=== PATIENT | female | born 1990 | race American Indian/Alaskan Native ===

== ENCOUNTER 2016-10-09 08:30 | Emergency (ER) | payer MEDICAID ==
[2016-10-09 08:40] VITALS: BP 107/70
--- NOTE | 2016-10-09 10:57 | XRay Report ---
RIGHT SHOULDER RADIOGRAPHS INDICATION: Right shoulder pain, injury. COMPARISON: None similar. FINDINGS: Frontal and Y views of the right shoulder, 3 projections demonstrate normal humeral head contour, well positioned against the glenoid. Normal acromioclavicular joint. Preserved scapular contour. Normal visualized soft tissues, right ribs and lung. CONCLUSION: No acute right shoulder radiographic abnormality, as described. Thank you for the opportunity to participate in this patient's care.
--- NOTE | 2016-10-09 11:00 | XRay Report ---
THORACIC SPINE RADIOGRAPHS INDICATION: Injury, thoracic spine pain. COMPARISON: None similar at this institution. FINDINGS: AP and lateral views to evaluate thoracic spine demonstrate preserved vertebral body stature. Slight scoliosis versus positional. Normal disc heights. Symmetric pedicles. Intact costovertebral articulations. No abnormal paraspinal density. Normal imaged heart. Clear visualized lungs. CONCLUSION: No acute thoracic spine radiographic abnormality, as described. Thank you for the opportunity to participate in this patient's care.
--- NOTE | 2016-10-09 11:05 | XRay Report ---
RIGHT SCAPULA RADIOGRAPHS INDICATION: Injury, right scapular pain. COMPARISON: None similar. FINDINGS: Frontal and Y views demonstrate grossly intact right scapula as also included shoulder joints. Normal imaged right lung and ribs. CONCLUSION: No acute right scapula radiographic abnormality. Thank you for the opportunity to participate in this patient's care.
--- NOTE | 2016-10-09 11:40 | Emergency Department Report ---
Entered by PAM JIN, acting as scribe for DEONDRE MATIAS PA. Upper Extremity - HPI Chief Complaint: Back Pain/Injury Stated Complaint: BACK/SHOULDER PAIN Time Seen by Provider: 10/09/16 09:19 Upper Extremity: Right Shoulder Occurred When: 2 Days Mechanism: Other (lifting a coffe pot) Severity: severe Symptoms: Yes Pain with Movement (right shoulder), Yes Limited Range of Movement (right shoulder), No Deformity, No Numbness, No Weakness, No Swelling, No Bruising/Ecchymosis, No Laceration or Abrasion Other History: 25 y/o female with no significant PMHx presents to the ED c/o gradually worsening right shoulder pain that began 2 days ago. Patient states she injured her shoulder while lifting a coffee pot at work yesterday. Rates pain a 10/10 in severity, which she describes as aching in quality. Aggravated with movemant and alleviated with immobilization. Associated symptom include right sided upper back pain. Denies numbness and tingling, but she notes she had numbness and tingling in her right hand last. Denies chest trauma, fever, and chills. Denies taking any medication to relieve pain. NKDA. ED Review of Systems ROS: Stated complaint: BACK/SHOULDER PAIN Other details as noted in HPI Comment: All other systems reviewed and negative Constitutional: denies: chills, fever Eyes: denies: eye pain, eye discharge, vision change ENT: denies: ear pain, throat pain Respiratory: denies: cough, shortness of breath, wheezing Cardiovascular: denies: chest pain, palpitations Endocrine: no symptoms reported Gastrointestinal: denies: abdominal pain, nausea, vomiting, diarrhea Musculoskeletal: back pain (right sided upper back pain), arthralgia (right shoulder pain). denies: joint swelling, myalgia Skin: denies: rash, lesions Neurological: denies: headache, weakness, numbness, paresthesias ED Past Medical Hx - Past Medical History Previous Medical History?: No - Surgical History Past Surgical History?: No - Family History Family history: no significant - Social History Smoking Status: Current Every Day Smoker Substance Use Type: None - Medications Home Medications: Home Medications Medication Instructions Recorded Confirmed Last Taken Type Ibuprofen [Motrin] 600 mg PO Q8H PRN #15 tablet 10/09/16 Unknown Rx Upper Extremity Exam - Exam General: Vital signs noted. General: This is a well nourished, well developed, 25 year old female in no acute distress and nontoxic in appearance MSK: No crepitus or effusion present. No CCE. Head and Torso: Yes Back Tenderness (right thoracic paraspinal tenderness), No HEENT Abnormality, No Neck Tenderness (Supple, no C-spine tenderness, no tracheal deviation. Nontender to palpation. no adenopathy), No Chest/Lungs Abnormality (No chest wall tenderness. Lungs clear to auscultation bilaterally. No wheezes, rhonchi, or rales.), No Abdominal Tenderness (Soft, nontender to palpation in all quadrants, normal bowel sounds in all quadrants.) Shoulder Exam: Yes Shoulder Tenderness (right), Yes AC Joint Tenderness (right) , No Clavicle Tenderness, No Normal Range of Motion in Shoulder (limited due to right shoulder pain), No Shoulder Deformity Arm Exam: No Arm/Humerus Tenderness, No Arm Deformity Elbow: Yes Normal Range of Motion in Elbow, No Elbow Tenderness, No Elbow Deformity Forearm: No Forearm Tenderness, No Forearm Deformity, No Pain with Pronation, No Pain with Supination Wrist: Yes Normal ROM in Wrist, No Wrist Tenderness, No Wrist Deformity, No Snuffbox Tenderness, No Pain with Axial Thumb Compression Hand: Yes Normal ROM in Digit(s), No Hand Tenderness, No Hand Deformity, No Digit Tenderness, No Digit(s) Deformity, No Tendon Dysfunction CMS Exam: Yes Normal Distal Pulses (+2 pulses. No neurovascular compromise), Yes Normal Capillary Refill, Yes Normal Distal Sensation, No Broken Skin ED Course Vital Signs 10/09/16 08:37 Temperature 98.4 F Pulse Rate 73 Respiratory 16 Rate Blood Pressure 107/70 O2 Sat by Pulse 98 Oximetry - Reevaluation(s) Reevaluation #1: 10/09/16 11:33 Patient hair report that she has right shoulder injury from lifting coffee last night. X-ray of right shoulder, right scalp and right thoracic spine reveal no acute abnormalities. Patient stable throughout ED course ED Medical Decision Making - Radiology Data Radiology results: report reviewed X-ray of right shoulder, right scapula and thoracic spine reveal no acute bony abnormality. Right shoulder x-ray without any joint effusion or soft tissue swelling. - Medical Decision Making ED course: He reports that she injured her right shoulder and she is having pain in her right shoulder, right scapula and mid thoracic spine area that is limited in her movement. He states she was having some tingling in her right hand. X-ray of T-spine, right shoulder joint and scapula revealed no acute bony abnormality. This was relayed to patient and I told her if she continues to have pain she'll need to follow up with orthopedic doctor for MRI and evaluation of rotator cuff. She voiced understanding and discharged home Diagnostic/labs: X-ray of T-spine, right shoulder and scapula revealed no acute bony abnormalities Assessment/plan 1. Arthralgia right shoulder 2. Right shoulder injury 3. Back pain, thoracic region Patient discharged home with prescription for Motrin and to follow-up with orthopedic doctor. Critical care attestation.: If time is entered above; I have spent that time in minutes in the direct care of this critically ill patient, excluding procedure time. ED Disposition Clinical Impression: Arthralgia of right shoulder region, Upper back pain on right side Disposition: DC- TO HOME OR SELFCARE Is pt being admited?: No Does the pt Need Aspirin: No Condition: Stable Instructions: Arthralgia (ED), Back Pain (ED) Additional Instructions: follow-up with orthopedic doctor as instructed rest Affected area for 48 hours Prescriptions: Ibuprofen [Motrin] 600 mg PO Q8H PRN #15 tablet PRN Reason: Pain Referrals: REZA BLANCO MD [Staff Physician] - 2-3 Days Forms: Work/School Release Form(ED) This documentation as recorded by the ANNABEL edmond JASMINE,accurately reflects the service I personally performed and the decisions made by ,DEONDRE MATIAS PA.
== END 2016-10-09 11:48 | disposition home or self-care (01) ==
LOC: ED 08:30
DX: M25.511 Pain in right shoulder (principal); M54.6 Pain in thoracic spine; F17.200 Nicotine dependence, unspecified, uncomplicated
CPT/HCPCS: 72070; 99283

== ENCOUNTER 2017-09-25 19:49 | Emergency (ER) | payer MEDICAID ==
[2017-09-25 20:13] VITALS: BP 102/51
[2017-09-25] MEDS ORDERED: NACL 0.9% 1000 ML 1,000 ML IV ONE (20:13)
[2017-09-25 20:25] LABS: Bilirubin,Urine NEG (Negative); Blood,Urine NEG (Negative); Color,Urine Yellow (Yellow); Mucus,Urine 1+ /HPF; Protein,Urine <15 mg/dL mg/dL (Negative); Urobilinogen,Urine < 2.0 mg/dL (<2.0)
[2017-09-25 20:35] LABS: Basophils % (Auto) 0.6 % (0.0-1.8); Eosinophils % (Auto) 0.5 % (0.0-4.3); Hematocrit 37.6 % (30.3-42.9); Hemoglobin 12.8 gm/dl (10.1-14.3); Lymphocytes # (Auto) 3.1 K/mm3 (1.2-5.4); Lymphocytes % (Auto) 45.5 % (13.4-35.0); Mean Corpuscular HGB Conc 34 % (30-34); Mean Corpuscular Hemoglobin 32 pg (28-32); Mean Corpuscular Volume 95 fl (79-97); Monocytes # (Auto) 0.5 K/mm3 (0.0-0.8); Monocytes % (Auto) 7.7 % (0.0-7.3); Platelet Count 202 K/mm3 (140-440); Red Blood Count 3.98 M/mm3 (3.65-5.03); Red Cell Distribution Width 12.9 % (13.2-15.2)
[2017-09-25 20:48] LABS: Alanine Aminotransferase 26 units/L (7-56); Albumin 4.3 g/dL (3.9-5); BUN/Creatinine Ratio 13; Blood Urea Nitrogen 12 mg/dL (7-17); Calcium 9.1 mg/dL (8.4-10.2); Hemolysis Index 4; Lipase 12 units/L (13-60)
[2017-09-25] MEDS ORDERED: TYLENOL PO ONE (23:42)
[2017-09-25] MEDS ORDERED: ZOFRAN ODT PO ONE (23:42)
--- NOTE | 2017-09-25 23:47 | Emergency Department Report ---
ED Female HPI - General Chief complaint: Abdominal Pain Stated complaint: ABDOMINAL PAIN Time Seen by Provider: 09/25/17 23:42 Source: patient Mode of arrival: Ambulatory Limitations: No Limitations - History of Present Illness Initial comments: Patient is 26 years old female 4 para 2 with one miscarriage. Patient presented to the ER complaining of lower abdominal pain for the last 2 weeks associated with some nausea but no vomiting. Patient stated that her last menstrual period was in July. She denied any vaginal bleeding or discharge. MD Complaint: pelvic pain Location: suprapubic - Related Data Previous Rx's Medication Instructions Recorded Last Taken Type Ibuprofen [Motrin] 600 mg PO Q8H PRN #15 tablet 10/09/16 Unknown Rx Allergies Allergy/AdvReac Type Severity Reaction Status Date / Time No Known Allergies Allergy Verified 10/09/16 08:41 ED Review of Systems ROS: Stated complaint: ABDOMINAL PAIN Other details as noted in HPI Comment: All other systems reviewed and negative Constitutional: denies: chills, fever Respiratory: denies: cough Cardiovascular: denies: chest pain, palpitations, dyspnea on exertion, orthopnea Gastrointestinal: abdominal pain, nausea. denies: vomiting, diarrhea, constipation, hematemesis, melena, hematochezia Neurological: denies: headache, weakness, numbness, paresthesias, confusion, abnormal gait ED Past Medical Hx - Past Medical History Previous Medical History?: No - Surgical History Past Surgical History?: No - Social History Smoking Status: Never Smoker Substance Use Type: None - Medications Home Medications: Home Medications Medication Instructions Recorded Confirmed Last Taken Type Ibuprofen [Motrin] 600 mg PO Q8H PRN #15 tablet 10/09/16 Unknown Rx ED Physical Exam - General Limitations: No Limitations General appearance: alert, in no apparent distress - Head Head exam: Present: atraumatic, normocephalic, normal inspection - Eye Eye exam: Present: normal appearance - ENT ENT exam: Present: normal exam, normal orophraynx, mucous membranes moist - Neck Neck exam: Present: normal inspection, full ROM. Absent: tenderness, meningismus, lymphadenopathy, thyromegaly - Respiratory Respiratory exam: Present: normal lung sounds bilaterally. Absent: respiratory distress, wheezes, rales, rhonchi, accessory muscle use, decreased breath sounds , prolonged expiratory - Cardiovascular Cardiovascular Exam: Present: regular rate, normal rhythm, normal heart sounds - GI/Abdominal GI/Abdominal exam: Present: soft, normal bowel sounds. Absent: distended, tenderness, guarding, rebound, rigid, organomegaly, mass, bruit, pulsatile mass , hernia - Extremities Exam Extremities exam: Present: normal inspection, full ROM, normal capillary refill - Back Exam Back exam: Present: normal inspection, full ROM. Absent: tenderness, CVA tenderness (R), CVA tenderness (L), muscle spasm, paraspinal tenderness, vertebral tenderness - Neurological Exam Neurological exam: Present: alert, oriented X3, CN II-XII intact, normal gait, reflexes normal - Skin Skin exam: Present: warm, intact, normal color ED Course Vital Signs 09/25/17 20:09 Temperature 98.4 F Pulse Rate 99 H Respiratory 16 Rate Blood Pressure 102/51 O2 Sat by Pulse 99 Oximetry - Reevaluation(s) Reevaluation #1: 09/26/17 05:18 Patient is sitting comfortably easily arousable. Patient stated that she is feeling better. I informed about the ultrasound and advised to follow-up with her OB in the next 2-3 days. ED Medical Decision Making - Lab Data Result diagrams: 09/25/17 20:23 09/25/17 20:23 Critical care attestation.: If time is entered above; I have spent that time in minutes in the direct care of this critically ill patient, excluding procedure time. ED Disposition Clinical Impression: Abdominal pain affecting Disposition: DC-01 TO HOME OR SELFCARE Is pt being admited?: No Condition: Stable Instructions: Abdominal Pain in (ED) Referrals: PRIMARY CARE, [Primary Care Provider] - 3-5 Days
--- NOTE | 2017-09-26 07:33 | Ultrasound Report ---
FINAL REPORT PROCEDURE: TRANSVAGINAL US OBSTETRIC TECHNIQUE: Real-time transabdominal sonography of the uterus, placenta, amniotic fluid, adnexa, and fetus was performed with image documentation. Measurements were obtained to determine age/size. M-mode Doppler was used to document heartbeat. CPT 55901 HISTORY: abdomen pain COMPARISON: No prior studies are available for comparison. FINDINGS: CRL: 13.2 mm, which corresponds to a gestational age of: 7 weeks, 4 days. Yolk Sac: Normal. Embryonic Cardiac Activity: 141 beats per minute Gestational Sac: Normal. Amniotic fluid: Normal. Cervix: Normal. Right Ovary: There is an 18 millimeter cyst Left Ovary: Normal. Estimated delivery date: 05/11/2018 Uterus and adnexa: Normal. IMPRESSION: Single live intrauterine gestation at approximately 7 weeks and 4 days. EDC by US 05/11/2018
--- NOTE | 2017-09-26 07:35 | Ultrasound Report ---
FINAL REPORT PROCEDURE: TRANSVAGINAL US OBSTETRIC TECHNIQUE: Real-time transabdominal sonography of the uterus, placenta, amniotic fluid, adnexa, and fetus was performed with image documentation. Measurements were obtained to determine age/size. M-mode Doppler was used to document heartbeat. CPT 20496 HISTORY: abdomen pain COMPARISON: No prior studies are available for comparison. FINDINGS: CRL: 13.2 mm, which corresponds to a gestational age of: 7 weeks, 4 days. Yolk Sac: Normal. Embryonic Cardiac Activity: 141 beats per minute Gestational Sac: Normal. Amniotic fluid: Normal. Cervix: Normal. Right Ovary: There is an 18 millimeter cyst Left Ovary: Normal. Estimated delivery date: 05/11/2018 Uterus and adnexa: Normal. IMPRESSION: Single live intrauterine gestation at approximately 7 weeks and 4 days. EDC by US 05/11/2018
== END 2017-09-26 05:57 | disposition home or self-care (01) ==
LOC: ED 19:49
DX: O26.891 Other specified pregnancy related conditions, first trimester (principal); R10.2 Pelvic and perineal pain; Z3A.01 Less than 8 weeks gestation of pregnancy
CPT/HCPCS: 36415; 76801; 76817; 80053; 81001; 83690; 84702; 84703; 85025; 99284; J7030; Q0162

== ENCOUNTER 2018-04-12 22:38 | Observation (INO) | payer MEDICAID ==
[2018-04-12] MEDS ORDERED: LACTATED RINGERS 1,000 ML IV ONE (23:18)
[2018-04-13 00:31] LABS: Bilirubin,Urine NEG (Negative); Blood,Urine NEG (Negative); Color,Urine Straw (Yellow); Protein,Urine <15 mg/dL mg/dL (Negative); Urobilinogen,Urine < 2.0 mg/dL (<2.0); WBC,Urine < 1.0 /HPF (0.0-6.0)
[2018-04-13] MEDS ORDERED: BRETHINE SUB-Q ONE ×3 (01:33→05:59)
[2018-04-13] MEDS ORDERED: CELESTONE SOLUSPAN IM ONE (01:42)
[2018-04-13] MEDS ORDERED: COLACE PO PRN (01:45)
[2018-04-13] MEDS ORDERED: TYLENOL PO PRN (01:45)
[2018-04-13] MEDS ORDERED: LACTATED RINGERS 1,000 ML IV SCH (02:00)
--- NOTE | 2018-04-13 02:05 | History and Physical Report ---
History of Present Illness Date of examination: 04/13/18 Date of admission: 04/13/2018 Chief complaint: Contractions since 8:00 PM last night. History of present illness: 27 year old presents to L&D triage complaining of contractions. I was notified of patient's arrival at 01:21 am today. Patient states she has been having contractions since about 8:00 pm last night. Patient denies leaking of fluid or vaginal bleeding. Patient reports active movement. Patient has been receiving care at [facility] and records are available. LMP 08/07/17. EDC 05/14/18. significant for the following: cigarette smoker, use of marijuana, depression (treated with Prozac during ), LSIL pap. labs are as follows: AB positive, antibody screen negative, LSIL pap, rubella immune, RPR nonreactive, hepatitis B surface antigen negative, HIV negative, hemoglobin electrophoresis AA, gonorrhea negative, chlamydia negative, quad screen negative, GBS negative. 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 denies: chlamydia, gonorrhea, hepatitis B, HIV, syphilis, trichomonas Family/Genetic History: none Social history: lives with family, smoking, full code, other (marijuana use during ). denies: alcohol abuse, prescription drug abuse, IV drug use - Obstetrical History Expected Date of Delivery: 05/14/18 Actual Gestation: 35 Week(s) 4 Day(s) : 4 Para: 2 Hx # Term Pregnancies: 1 Number of Pregnancies: 2 Spontaneous Abortions: 1 Induced : 0 Number of Living Children: 2 Medications and Allergies Allergies Allergy/AdvReac Type Severity Reaction Status Date / Time No Known Allergies Allergy Verified 10/09/16 08:41 Home Medications Medication Instructions Recorded Confirmed Last Taken Type Vit,Calc76/Iron/Folic 1 tab PO DAILY 04/12/18 04/12/18 04/12/18 History [Pnv 29-1 Tablet] Active Meds: Active Medications Acetaminophen (Tylenol) 650 mg PO Q4H PRN PRN Reason: Pain MILD(1-3)/Fever >100.5/BAR Betamethasone Acet/Betameth SodPhos (Celestone Soluspan) 12 mg IM ONCE ONE Stop: 04/14/18 01:41 Lactated Ringer's (Lactated Ringers) 1,000 mls @ 125 mls/hr IV DIRECT FRANCOIS Multivitamins/Iron/Calcium ( Vitamin) 1 each PO QDAY FRANCOIS Review of Systems All systems: negative (contractions) - Vital Signs Vital signs: Vital Signs Pulse Pulse Ox 86 99 04/12/18 22:56 04/12/18 22:56 Temp Pulse Resp BP Pulse Ox 98.9 F 92 H 18 101/60 98 04/12/18 23:09 04/13/18 01:53 04/12/18 23:09 04/13/18 00:32 04/13/18 01:53 - Physical Exam Abdomen: Positive: normal appearance, soft. Negative: distention, tenderness, guarding, rigidity Genitourinary (Female): Positive: normal external genitalia, normal perenium. Negative: perineal/vulvar lesions Vagina: Positive: normal moisture Uterus: Positive: enlarged. Negative: tender Anus/Rectum: Positive: normal perianal skin Extremities: Positive: normal. Negative: tenderness, edema - Obstetrical FHR: category 1 Uterine Contraction Monitor Mode: External Cervical Dilatation: 3.5 Cervical Effacement Percentage: 60 station: -2 Uterine Contraction Pattern: Irregular Uterine Contraction Intensity: Mild Results All other labs normal. Assessment and Plan A: at 35 weeks, 4 days gestation. contractions, resolving with IV hydration and SQ Brethine. GBS negative. P: Admit for 23 hour observation. Continuous EFM. IM Celestone every 24 hours times 2 doses. US for presentation. UA/UDS.
[2018-04-13 02:14] LABS: Amphetamine Screen,Urine PRESUMPTIVE NEGATIVE; Benzodiazepines Screen,Urine PRESUMPTIVE NEGATIVE; Cocaine Screen,Urine PRESUMPTIVE NEGATIVE; Methadone Screen,Urine PRESUMPTIVE NEGATIVE; Opiate Screen,Urine PRESUMPTIVE NEGATIVE
[2018-04-13 02:28] LABS: Cannabinoid Screen,Urine PRESUMPTIVE POSITIVE
[2018-04-13 02:29] LABS: Basophils % (Auto) 0.4 % (0.0-1.8); Eosinophils # (Auto) 0.1 K/mm3 (0.0-0.4); Eosinophils % (Auto) 0.7 % (0.0-4.3); Hematocrit 27.9 % (30.3-42.9); Hemoglobin 9.5 gm/dl (10.1-14.3); Mean Corpuscular HGB Conc 34 % (30-34); Mean Corpuscular Volume 95 fl (79-97); Monocytes # (Auto) 0.8 K/mm3 (0.0-0.8); Monocytes % (Auto) 9.9 % (0.0-7.3); Platelet Count 151 K/mm3 (140-440); Red Blood Count 2.94 M/mm3 (3.65-5.03); Red Cell Distribution Width 12.9 % (13.2-15.2)
--- NOTE | 2018-04-13 03:55 | Ultrasound Report ---
FINAL REPORT PROCEDURE: US OB LIMITED TECHNIQUE: Real-time limited sonographic examination was performed for evaluation of size, pos ition, heartbeat, fluid volume for each fetus with image documentation (1 or more fetuses). CPT 7681 5 HISTORY: presentation and FRANKIE COMPARISON: No prior studies are available for comparison. FINDINGS: Fetus is in a cephalic presentation. Amniotic fluid index is 14.2 centimeters. Placenta is anterior without evidence of previa. heart rate is 159 beats per minute. IMPRESSION: Fetus is in a cephalic presentation. Amniotic fluid index is 14.2 centimeters. Placenta is anterior without evidence of previa. heart rate is 159 beats per minute.
[2018-04-13] MEDS ORDERED: PRENATAL VITAMIN PO SCH (10:00)
[2018-04-14 01:04] VITALS: BP 90/52
[2018-04-14] MEDS ORDERED: CELESTONE SOLUSPAN IM ONE (01:40)
--- NOTE | 2018-04-14 08:21 | Event Note ---
Date: 04/14/18 Spoke with RN regarding patient this morning. RN states patient received her second Celestone injection early this morning but did not have a ride home so wanted to stay until 5 or 6 am when she would be able to have a ride home. Came to discharge patient; patient refused to be put back on EFM for NST; patient refused to have cervix rechecked. Advised patient that cervix recheck was advised by MD. Patient refused and signed out AMA. Rx Procardia 10 mg called to [facility] for patient and patient instructed re: use. Advised pt. to follow up at [facility] this week.
== END 2018-04-14 06:45 | disposition left against medical advice (07) ==
LOC: TRG 22:38 → LD 04-13 03:02
PROVIDERS: ADMIT Obstetrics & Gynecology; ATTEND Obstetrics & Gynecology
DX: O62.9 Abnormality of forces of labor, unspecified (principal); O99.333 Smoking (tobacco) complicating pregnancy, third trimester; F17.210 Nicotine dependence, cigarettes, uncomplicated; O99.343 Other mental disorders complicating pregnancy, third trimester; F32.9 Major depressive disorder, single episode, unspecified; O99.323 Drug use complicating pregnancy, third trimester; F12.10 Cannabis abuse, uncomplicated; Z3A.35 35 weeks gestation of pregnancy
CPT/HCPCS: 36415; 76815; 80307; 81001; 85025; 86592; 86850; 86900; 86901; 96372; G0378; J0702; J3105; J7120

== ENCOUNTER 2018-05-13 11:30 | Inpatient (IN) | payer MEDICAID ==
[2018-05-13] MEDS ORDERED: CYTOTEC ONE (17:09)
[2018-05-13] MEDS ORDERED: XYLOCAINE 2% INFILTRATI ONE (17:42)
[2018-05-13] MEDS ORDERED: MINERAL OIL PO PRN (17:42)
[2018-05-13] MEDS ORDERED: CYTOTEC PR ONE (17:45)
--- NOTE | 2018-05-13 17:49 | History and Physical Report ---
History of Present Illness Date of examination: 05/13/18 Date of admission: 05/13/18 Chief complaint: Contractions History of present illness: 27yo G 4 P 1 1 1 2 @ 39 weeks 6 days here with c/o contractions that started this morning. She reports +FMs but denies VB or LOF. She is a [employer] [facility] [employer] patient who initiated care at 14 weeks gestation. Her care was complicated by h/o delivery (co-managed w/APA), cigarette smoking, marijuana use, h/o depression (no suicidal or homicidal thoughts), anemia (on iron therapy), and abnormal pap (LGSIL/neg HPV.) Labs: AB pos, Antibody Screen neg, RI, VDRL NR, HBsAg neg, HIV neg, MSAFP neg, GC/CT neg, GBS neg. 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 denies: alcohol abuse, prescription drug abuse - Obstetrical History Expected Date of Delivery: 05/14/18 Actual Gestation: 39 Week(s) 6 Day(s) : 4 Para: 2 Hx # Term Pregnancies: 1 Number of Pregnancies: 1 Spontaneous Abortions: 1 Induced : 0 Number of Living Children: 2 #1 Infant Gender: Female year: 2,011 (12/21/2011) Birthweight: 3.147 kg (6lbs 15oz) Method of Delivery: Vaginal Gestational age at delivery: 42 Complications: none #2 Gender: Male year: 2,[birth year] (10/26/2012) Birthweight: 2.268 kg (5 lbs) Method of Delivery: Vaginal Gestational age at delivery: 36 Complications: none Medications and Allergies Allergies Allergy/AdvReac Type Severity Reaction Status Date / Time No Known Allergies Allergy Verified 10/09/16 08:41 Home Medications Medication Instructions Recorded Confirmed Last Taken Type Vit,Calc76/Iron/Folic 1 tab PO DAILY 04/12/18 04/12/18 04/12/18 History [Pnv 29-1 Tablet] Review of Systems All systems: negative - Vital Signs Vital signs: Vital Signs Pulse Ox 68 L 05/13/18 12:04 Temp Pulse Resp BP Pulse Ox 98.5 F 91 H 20 118/93 100 05/13/18 12:27 05/13/18 17:09 05/13/18 12:27 05/13/18 17:09 05/13/18 12:26 - Obstetrical FHR: auscultation normal, category 1 FHR comments: baseline 135, moderate variability, 15x15 accels, no decels Cervical Dilatation: 4 (per RN) Cervical Effacement Percentage: 90 (per RN) station: -2 (per RN) Uterine Contraction Pattern: Regular Results All other labs normal. Assessment and Plan - Patient Problems (1) 39 weeks gestation of Current Visit: Yes Status: Acute (2) Active labor at term Current Visit: Yes Status: Acute Plan to address problem: Admit to L&D with routine labor orders May ambulate prn Anticipate vaginal delivery
[2018-05-13] MEDS ORDERED: TUCKS PAD TP PRN (17:50)
[2018-05-13] MEDS ORDERED: MILK OF MAGNESIA PO PRN (17:50)
[2018-05-13] MEDS ORDERED: ZOFRAN IV PRN (17:50)
[2018-05-13] MEDS ORDERED: LANSINOH TP PRN (17:50)
[2018-05-13] MEDS ORDERED: BENADRYL PO PRN (17:50)
[2018-05-13] MEDS ORDERED: TYLENOL PO PRN (17:50)
[2018-05-13] MEDS ORDERED: PHENERGAN PO PRN (17:50)
[2018-05-13] MEDS ORDERED: PHENERGAN PR PRN (17:50)
[2018-05-13] MEDS ORDERED: DULCOLAX PR PRN (17:50)
[2018-05-13] MEDS ORDERED: PITOCin/NS 20 UNIT/1000ML DRIP 20 UNITS/1,000 ML BAG IV SCH (18:00)
[2018-05-13] MEDS ORDERED: LACTATED RINGERS 1,000 ML IV SCH (18:00)
[2018-05-13] MEDS ORDERED: SODIUM CHLORIDE FLUSH SYRINGE 10 ML IV NR (18:00)
--- NOTE | 2018-05-13 18:15 | Procedure Note ---
OB Delivery Note - Delivery Date of Delivery: 05/13/18 (17:24) Surgeon: JOSSIE LUNA (CNM) Estimated blood loss: 200cc - Vaginal Delivery presentation: vertex Delivery position: OP Intrapartum events: none Delivery induction: none Delivery monitor: external FHT, external uterine Route of delivery: (17:24) Delivery placenta: spontaneous (17:32) Delivery cord: 3 umbilical vessels Episiotomy: none Delivery laceration: none Anesthesia: none Delivery comments: of a vigorous term 6 lbs 13oz female on 05/13/18 @ 17:24. Baby bulb-suction ed, dried & placed [id number] on maternal abdomen. After 3 mins, umbilical cord double-clamped & cut. No IV access. Pitocin 10units IM administered by RN. Spontaneous delivery of placenta, Hua-side presenting at 17:32. Moderate lochia present. Fundal massage and IV Pitocin initiated. Cytotec 800mcg AK administered. Placenta intact, was discarded. Perineum intact. Mom and baby in stable condition. - Infant A at 1 minute: 8 at 5 minutes: 9 Infant Gender: Female (6lbs 13oz(3088gm); 19in)
[2018-05-13] MEDS: NORCO 5/325 PO PRN ×2 (18:27→23:36)
[2018-05-13] MEDS: IBUPROFEN PO SCH ×2 (18:28→23:36)
[2018-05-13 18:41] LABS: Hematocrit 37.4 % (30.3-42.9); Hemoglobin 12.6 gm/dl (10.1-14.3); Mean Corpuscular HGB Conc 34 % (30-34); Mean Corpuscular Volume 94 fl (79-97); Red Blood Count 3.98 M/mm3 (3.65-5.03); Red Cell Distribution Width 13.8 % (13.2-15.2)
[2018-05-13 18:42] LABS: Platelet Count 147 K/mm3 (140-440)
[2018-05-13] MEDS: FEOSOL PO SCH (23:36)
[2018-05-14 03:02] LABS: Amphetamine Screen,Urine PRESUMPTIVE NEGATIVE; Benzodiazepines Screen,Urine PRESUMPTIVE NEGATIVE; Cannabinoid Screen,Urine PRESUMPTIVE NEGATIVE; Cocaine Screen,Urine PRESUMPTIVE NEGATIVE; Methadone Screen,Urine PRESUMPTIVE NEGATIVE; Opiate Screen,Urine PRESUMPTIVE NEGATIVE
[2018-05-14] MEDS: IBUPROFEN PO SCH ×3 (05:09→18:00)
[2018-05-14] MEDS: NORCO 5/325 PO PRN ×3 (05:10→21:20)
[2018-05-14 05:27] LABS: Hematocrit 31.4 % (30.3-42.9); Hemoglobin 10.7 gm/dl (10.1-14.3)
--- NOTE | 2018-05-14 10:08 | Progress Note ---
Assessment and Plan A: 27 yo, , PPD1 s/p Intact perineum Anemia Depression AB+ blood type P: Continue routine PP orders Anticipate D/C home tomorrow Subjective - Subjective Date of service: 05/14/18 Principal diagnosis: Interval history: See Admission H & P; OB vaginal delivery note; and PP progress notes. Patient reports: appetite normal, voiding normally, pain poorly controlled (Reports a moderate amt of pain in abdominal area. Is taking medications as ordered.), ambulating normally : doing well, other (and with good latch), bottle feeding Objective - Vital Signs Latest vital signs: Vital Signs Temp Pulse Resp BP BP Pulse Ox 05/14/18 08:00 97.6 F 64 18 84/31 100 05/14/18 05:10 18 05/14/18 05:09 18 05/14/18 04:25 98.6 F 63 18 97/51 99 05/13/18 23:36 18 05/13/18 20:16 98.6 F 72 16 102/26 100 05/13/18 19:14 77 101/58 05/13/18 18:59 71 99/57 05/13/18 18:44 67 118/76 05/13/18 18:30 79 110/57 05/13/18 18:14 78 117/64 05/13/18 17:59 69 107/58 05/13/18 17:56 70 115/57 05/13/18 17:45 68 145/107 05/13/18 17:09 91 H 118/93 05/13/18 15:14 90 100/50 05/13/18 15:09 93 H 209/137 05/13/18 12:27 98.5 F 20 05/13/18 12:26 86 100 05/13/18 12:21 85 100 05/13/18 12:15 91 H 100 05/13/18 12:10 93 H 100 05/13/18 12:09 95 H 111/74 67 L 05/13/18 12:05 81 99 05/13/18 12:04 68 L Intake and Output 05/13/18 05/14/18 05/14/18 23:59 07:59 15:59 Intake Total 100 440 360 Output Total 300 Balance 100 140 360 Intake: Oral 100 440 360 Output: Urine 300 Void 300 Other: Total, Intake Amount 100 200 360 Total, Output Amount 300 # Voids Void 1 Estimated Blood Loss 200 - Exam Breasts: Present: normal Cardiovascular: Present: Regular rate, Normal S1, Normal S2 Lungs: Present: Clear to auscultation, Normal air movement Abdomen: Present: normal appearance, soft, normal bowel sounds Uterus: Present: fundal height below umbilicus (U-1) Extremities: Present: normal Deep Tendon Reflex Grade: Normal +2
--- NOTE | 2018-05-14 10:13 | Discharge Summary ---
Providers - Providers Date of Admission: 05/13/18 18:13 Date of discharge: 05/15/18 Attending physician: EILEEN CARTER Primary care physician: NADIR PIERRE MD Hospitalization Reason for admission: active labor Delivery: Episiotomy: none Laceration: none Other procedures: none complications: none Discharge diagnosis: other (; Anemia) [place] baby: female Hospital course: See Admission H & P; OB vaginal delivery note; and PP progress notes. Condition at discharge: Good Disposition: DC-01 TO HOME OR SELFCARE Plan - Provider Discharge Summary Activity: routine, no sex for 6 weeks, no heavy lifting 4 weeks, no strenuous exercise Diet: routine Instructions: routine Additional instructions: [] Smoking cessation referral if applicable(refer to patient education folder for contact #) [] Refer to [facility]'s [facility] Booklet Call your doctor immediately for: * Fever > 100.5 * Heavy vaginal bleeding ( >1 pad per hour) * Severe persistent headache * Shortness of breath * Reddened, hot, painful area to leg or breast * Drainage or odor from incision. Continue iron supplementation - Follow up plan Follow up: NADIR PIERRE MD [Primary Care Provider] - 6 Weeks
[2018-05-14] MEDS: FEOSOL PO SCH ×2 (10:26→21:20)
[2018-05-14] MEDS: PRENATAL VITAMIN PO SCH (10:26)
[2018-05-15] MEDS: IBUPROFEN PO SCH ×2 (00:01→06:02)
[2018-05-15] MEDS: NORCO 5/325 PO PRN (06:02)
[2018-05-15] MEDS: PRENATAL VITAMIN PO SCH (09:30)
[2018-05-15] MEDS: FEOSOL PO SCH (09:30)
[2018-05-15 12:50] VITALS: BP 110/80
== END 2018-05-15 12:20 | disposition home or self-care (01) | DRG 775 ==
LOC: TRG 11:30 → LD 11:33 → TRG 18:12 → LD 18:13 → OB 20:09
PROVIDERS: ADMIT Obstetrics & Gynecology; ATTEND Obstetrics & Gynecology
PROC: 10E0XZZ Delivery of Products of Conception, External Approach (ICD-10-PCS; principal; 2018-05-13)
DX: O99.324 Drug use complicating childbirth (principal); F32.9 Major depressive disorder, single episode, unspecified; F17.210 Nicotine dependence, cigarettes, uncomplicated; F12.90 Cannabis use, unspecified, uncomplicated; D64.9 Anemia, unspecified; O99.344 Other mental disorders complicating childbirth; O99.334 Smoking (tobacco) complicating childbirth; Z3A.39 39 weeks gestation of pregnancy; Z37.0 Single live birth
CPT/HCPCS: 36415; 80307; 85014; 85018; 85027; 86592; 86850; 86900; 86901; G0378; J2590

== ENCOUNTER 2018-09-01 14:36 | Emergency (ER) | payer MEDICAID ==
[2018-09-01] MEDS ORDERED: NACL 0.9% 1000 ML 1,000 ML IV ONE (15:01)
[2018-09-01] MEDS ORDERED: TYLENOL PO ONE (15:03)
--- NOTE | 2018-09-01 15:05 | Event Note ---
ED Screening Note Date of service: 09/01/18 Time: 15:02 ED Screening Note: 27 y/o female comes in for high fever, headache, nausea and dizziness. Patient was recently in residential and release on Sunday. This initial assessment/diagnostic orders/clinical plan/treatment(s) is/are subject to change based on patients health status, clinical progression and re- assessment by fellow clinical providers in the ED. Further treatment and workup at subsequent clinical providers discretion. Patient/guardian urged not to elope from the ED as their condition may be serious if not clinically assessed and managed. Initial orders include:
[2018-09-01 15:22] LABS: Basophils % (Auto) 0.3 % (0.0-1.8); Eosinophils % (Auto) 0.1 % (0.0-4.3); Hematocrit 41.7 % (30.3-42.9); Hemoglobin 14.4 gm/dl (10.1-14.3); Lymphocytes # (Auto) 1.3 K/mm3 (1.2-5.4); Lymphocytes % (Auto) 14.4 % (13.4-35.0); Mean Corpuscular HGB Conc 35 % (30-34); Mean Corpuscular Volume 91 fl (79-97); Monocytes # (Auto) 0.7 K/mm3 (0.0-0.8); Platelet Count 194 K/mm3 (140-440); Red Blood Count 4.59 M/mm3 (3.65-5.03)
[2018-09-01 15:33] LABS: INR 1.19 (0.87-1.13)
--- NOTE | 2018-09-01 15:47 | Emergency Department Report ---
ED Headache HPI - General Chief Complaint: Headache Stated Complaint: DIZZINESS/HEAD PAIN Time Seen by Provider: 09/01/18 14:59 Source: patient Exam Limitations: no limitations - History of Present Illness Initial Comments: 27-year-old female presents to ED with complaint of headache and neck pain. Patient states she was released from half-way last night. Patient reports she was arrested for probation violation 2 days ago. Patient says because she did not want to be incarcerated, she was banging her head on the door and carter very hard because she wanted to leave. Patient reports she was placed in restraints due to her behavior. Patient presents today due to headache and neck pain from hitting her head. Patient also found to have a fever. Denies nausea or vomiting, sore throat, cough, abdominal pain, urinary frequency. Timing/Duration: other (onset yesterday) Quality: severe Modifying Factors: improves with: exposure to light Associated Symptoms: stiff neck. denies: loss of consciousness, nausea/vomiting, nasal congestion, sinus infection Allergies/Adverse Reactions: Allergies No Known Allergies Allergy (Verified 10/09/16 08:41) Home Medications: Ambulatory Orders Vit,Calc76/Iron/Folic [Pnv 29-1 Tablet] 1 tab PO DAILY 04/12/18 Azithromycin [Zithromax Z-ELDA] 250 mg PO QDAY 5 Days #6 tablet 09/01/18 Naproxen [Naprosyn] 500 mg PO BID #20 tablet 09/01/18 methOCARBAMOL [Robaxin TAB] 500 mg PO Q8HR PRN #20 tablet 09/01/18 traMADol [Ultram] 50 mg PO Q6HR PRN #7 tablet 09/01/18 ED Review of Systems ROS: Stated complaint: DIZZINESS/HEAD PAIN Other details as noted in HPI Comment: All other systems reviewed and negative Constitutional: fever Respiratory: denies: cough Cardiovascular: denies: chest pain Gastrointestinal: denies: abdominal pain, nausea, vomiting, diarrhea Genitourinary: denies: dysuria, frequency, discharge Neurological: headache. denies: weakness, numbness ED Past Medical Hx - Past Medical History Previous Medical History?: No Hx Hypertension: No Hx Congestive Heart Failure: No Hx Diabetes: No Hx Deep Vein Thrombosis: No Hx Renal Disease: No Hx Sickle Cell Disease: No Hx Seizures: No Hx Asthma: No Hx COPD: No Hx HIV: No - Surgical History Past Surgical History?: No - Social History Smoking Status: Never Smoker Substance Use Type: None - Medications Home Medications: Home Medications Medication Instructions Recorded Confirmed Last Taken Type Vit,Calc76/Iron/Folic 1 tab PO DAILY 04/12/18 05/13/18 05/13/18 09:00 History [Pnv 29-1 Tablet] Azithromycin [Zithromax Z-ELDA] 250 mg PO QDAY 5 Days #6 tablet 09/01/18 Unknown Rx Naproxen [Naprosyn] 500 mg PO BID #20 tablet 09/01/18 Unknown Rx methOCARBAMOL [Robaxin TAB] 500 mg PO Q8HR PRN #20 tablet 09/01/18 Unknown Rx traMADol [Ultram] 50 mg PO Q6HR PRN #7 tablet 09/01/18 Unknown Rx ED Physical Exam - General Limitations: No Limitations General appearance: alert, in no apparent distress - Head Head exam: Present: atraumatic, normocephalic - Eye Eye exam: Present: normal appearance, PERRL, EOMI - ENT ENT exam: Present: mucous membranes moist - Neck Neck exam: Present: normal inspection. Absent: full ROM - Respiratory Respiratory exam: Present: normal lung sounds bilaterally. Absent: respiratory distress - Cardiovascular Cardiovascular Exam: Present: normal rhythm, tachycardia - GI/Abdominal GI/Abdominal exam: Present: soft. Absent: distended, tenderness - Extremities Exam Extremities exam: Present: normal inspection - Neurological Exam Neurological exam: Present: alert, oriented X3, CN II-XII intact. Absent: motor sensory deficit - Psychiatric Psychiatric exam: Present: normal affect, normal mood - Skin Skin exam: Present: warm, dry, intact, normal color ED Course Vital Signs 09/01/18 09/01/18 09/01/18 14:55 15:00 15:12 Temperature 103.2 F H 99.3 F Pulse Rate 128 H 129 H Respiratory 18 24 Rate Blood Pressure 120/72 Blood Pressure [Right] O2 Sat by Pulse 100 96 Oximetry 09/01/18 09/01/18 09/01/18 15:15 15:31 16:00 Temperature Pulse Rate 100 H 106 H Respiratory 18 19 19 Rate Blood Pressure 112/55 110/58 Blood Pressure [Right] O2 Sat by Pulse 100 100 100 Oximetry 09/01/18 09/01/18 09/01/18 19:18 19:30 19:34 Temperature Pulse Rate 79 77 78 Respiratory 15 15 Rate Blood Pressure 112/55 104/59 Blood Pressure 104/59 [Right] O2 Sat by Pulse 98 Oximetry 09/01/18 20:00 Temperature Pulse Rate 87 Respiratory 18 Rate Blood Pressure 94/52 Blood Pressure [Right] O2 Sat by Pulse Oximetry - Lumbar Puncture Consent Obtained: written consent Time Out Performed: Yes Indication for Procedure: headache, fever work up Patient Position: Sitting Upright/Leaning F Skin Prep: Povidone-Iodine 1% Local Anesthetic Used: Lidocaine 1% Amount of anesthesia used (mls): 3 Spinal Needle Gauge: 22G Interspace Used: L4-L5 Fluid Initially Obtained: clear Complications: none Patient Tolerated Procedure: well ED Medical Decision Making - Lab Data Result diagrams: 09/01/18 15:03 09/01/18 15:03 - Radiology Data Radiology results: report reviewed, image reviewed - Medical Decision Making - 27 yo F w/ BAR and neck pain after purposefully hitting her head against the wall all night long while in half-way because she did not want to be there - released from half-way last night - presents today w/ BAR and neck pain which pt reports is likely due to self- induced trauma - however, pt found to be febrile and tachycardic at triage - WBCs normal, lactate normal - vital signs improved; BP likely due to smaller body habitus - CXR shows possible pneumonia; pt denies cough, SOB, O2 sats normal - LP performed and appears negative for meningitis; CSF clear, 0-1 WBC in CSF cell count, CSF glucose normal - pt ambulating well, w/o assistance - will discharge at this time and will cover for possible pneumonia - outpt follow-up advised - Differential Diagnosis head injury, meningitis, uti, pneumonia Critical care attestation.: If time is entered above; I have spent that time in minutes in the direct care of this critically ill patient, excluding procedure time. ED Disposition Clinical Impression: Pneumonia, Head injury, Acute cervical myofascial strain Disposition: - TO HOME OR SELFCARE Is pt being admited?: No Condition: Stable Instructions: Muscle Strain (ED), Minor Head Injury (ED), Bacterial Pneumonia (ED) Prescriptions: Naproxen [Naprosyn] 500 mg PO BID #20 tablet methOCARBAMOL [Robaxin TAB] 500 mg PO Q8HR PRN #20 tablet PRN Reason: Muscle Spasm traMADol [Ultram] 50 mg PO Q6HR PRN #7 tablet PRN Reason: Pain Azithromycin [Zithromax Z-ELDA] 250 mg PO QDAY 5 Days #6 tablet Referrals: DEVIN WYLIE MD [Primary Care Provider] - 3-5 Days Forms: Work/School Release Form(ED)
[2018-09-01] MEDS ORDERED: NACL 0.9% 1000 ML IV ONE (15:55)
[2018-09-01 16:18] LABS: Alanine Aminotransferase 15 units/L (7-56); Albumin 4.4 g/dL (3.9-5); BUN/Creatinine Ratio 7; Blood Urea Nitrogen 7 mg/dL (7-17); Calcium 9.7 mg/dL (8.4-10.2); Hemolysis Index 6
--- NOTE | 2018-09-01 16:37 | XRay Report ---
CHEST 1 VIEW INDICATION / CLINICAL INFORMATION: fever. COMPARISON: None available. FINDINGS: SUPPORT DEVICES: None. HEART / MEDIASTINUM: No significant abnormality. LUNGS / PLEURA: Focal airspace consolidation and effusion identified along the left lower lung concer raz for pneumonia. The right lung is clear. Signer Name: Sourav Cisneros MD Signed: 09/01/2018 4:33 PM Workstation Name: [id number]
--- NOTE | 2018-09-01 17:11 | Cat Scan Report ---
CT BRAIN: 09/01/2018 INDICATION / CLINICAL INFORMATION: headache. COMPARISON: None available. FINDINGS: BRAIN/INTRACRANIAL STRUCTURES: Unenhanced CT images of the brain demonstrate no evidence of acute int racranial abnormality. Ventricles and sulci are normal in size and shape. There is no evidence of hemorrhage or mass. There are no abnormal extra-axial fluid collections. EXTRACRANIAL STRUCTURES: Unremarkable. IMPRESSION: Negative unenhanced CT of the brain. All CT scans at this location are performed using dose reduction to ALARA by means of automated expos ure control. Signer Name: Larry Kim MD Signed: 09/01/2018 5:06 PM Workstation Name: [id number]
--- NOTE | 2018-09-01 17:13 | Cat Scan Report ---
CT CERVICAL SPINE: 09/01/2018 INDICATION / CLINICAL INFORMATION: Trauma. COMPARISON: None available. FINDINGS: CT images of the cervical spine were obtained. Images are evaluated in the axial, coronal, and sagit dipti planes. There is no evidence of acute abnormality. Vertebral body alignment is normal. CRANIOCERVICAL JUNCTION: Unremarkable. PARASPINAL STRUCTURES: Unremarkable. IMPRESSION: No acute abnormality. Negative CT evaluation of the cervical spine. All CT scans at this location are performed using dose reduction to ALARA by means of automated expos ure control. Signer Name: Larry Kim MD Signed: 09/01/2018 5:09 PM Workstation Name: [id number]
[2018-09-01] MEDS ORDERED: ROCEPHIN/NS 2 GM/100 ML 2 GM/100 ML BAG IV ONE (18:00)
[2018-09-01] MEDS ORDERED: ROCEPHIN IM ONE (19:14)
[2018-09-01] MEDS ORDERED: NACL 0.9% 100 ML ONE (19:15)
[2018-09-01 19:42] LABS: Appearance,CSF Clear
[2018-09-01 19:43] LABS: Appearance,CSF Clear; Red Blood Cell,CSF 0 /mm3 (0-0); Red Blood Cell,CSF 1 /mm3 (0-0); White Blood Cell,CSF 0 /mm3 (1-10); White Blood Cell,CSF 1 /mm3 (1-10)
[2018-09-01 20:21] VITALS: BP 94/52
[2018-09-01 20:25] LABS: Basophils CSF 0 %
[2018-09-01 20:26] LABS: Basophils CSF 0 %; Total Cells Counted 0 /mm3
[2018-09-01 20:39] LABS: Bacteria,Urine 1+ /HPF (Negative); Bilirubin,Urine NEG (Negative); Blood,Urine NEG (Negative); Color,Urine Yellow (Yellow); Mucus,Urine FEW /HPF; Protein,Urine <15 mg/dL mg/dL (Negative); Urobilinogen,Urine < 2.0 mg/dL (<2.0)
== END 2018-09-01 20:42 | disposition home or self-care (01) ==
LOC: ED 14:36
DX: S16.1XXA Strain of muscle, fascia and tendon at neck level, initial encounter (principal); S09.90XA Unspecified injury of head, initial encounter; J18.9 Pneumonia, unspecified organism; R50.9 Fever, unspecified; W22.01XA Walked into wall, initial encounter; Y93.89 Activity, other specified; Y92.149 Unspecified place in prison as the place of occurrence of the external cause; Y99.8 Other external cause status
CPT/HCPCS: 36415; 62270; 70450; 71045; 72125; 80053; 81001; 82140; 82805; 82947; 84703; 85025; 85610; 87040; 87086; 87116; 89051; 93005; 93010; 96361; 96365; 99285; J0696; J7030

== ENCOUNTER 2020-12-17 10:29 | Emergency (ER) | payer MEDICAID ==
--- NOTE | 2020-12-17 13:03 | Emergency Department Report ---
ED General Adult HPI - General Chief complaint: Pain General Stated complaint: BUMP ON VAGINA,BACK PAIN, PUI?: Yes Time Seen by Provider: 12/17/20 12:52 Source: patient, RN notes reviewed, old records reviewed Mode of arrival: Stretcher Limitations: No Limitations - History of Present Illness Initial comments: The patient was evaluated in the emergency department for symptoms described in the history of present illness. He/she was evaluated in the context of the global COVID-19 pandemic, which necessitated consideration that the patient might be at risk for infection with the virus that causes COVID-19. Institutional protocols and algorithms that pertain to the evaluation of patients at risk for COVID-19 are in a state of rapid change based on information released by regulatory bodies including the CDC and federal and state organizations. These policies and algorithms were followed during the patient's care in the emergency department. Please note that these policies, procedures and recommendations changed on a rapid basis. During the entire history and physical examination, I am chaperoned by nurse Amira Sahni The patient is a 30-year-old female. She is not vaccinated against COVID-19. The patient presents to the ER today with a complaint of diffuse back pain which is nontraumatic, myalgias, arthralgias, headache, body aches, bump on her external vagina, malaise, weakness, fatigue, and diarrhea. Patient thinks she has loss of taste or smell. Patient denies extremity weakness and numbness. Patient occasionally consumes tobacco and/or marijuana. Patient reports a very distant history of STI. Patient reports being active with one male partner. Her symptoms are improved with fluids and hydromorphone in the emergency room. -: Gradual, hour(s), days(s) Location: head, back, genitals, left, right, lower extremity Quality: aching Consistency: constant Improves with: medication, rest Worsens with: movement - Related Data Home Medications Medication Instructions Recorded Confirmed Last Taken Vit,Calc76/Iron/Folic 1 tab PO DAILY 04/12/18 05/13/18 05/13/18 09:00 [Pnv 29-1 Tablet] Previous Rx's Medication Instructions Recorded Last Taken Type Acetaminophen [Non-Aspirin Extra 500 mg PO Q6HR PRN #30 tablet 12/17/20 Unknown Rx Strength] Ibuprofen [Motrin] 600 mg PO Q8H PRN #30 tablet 12/17/20 Unknown Rx Metoclopramide [Reglan] 10 mg PO QID PRN #30 tablet 12/17/20 Unknown Rx levoFLOXacin [Levaquin] 750 mg PO QDAY #10 tablet 12/17/20 Unknown Rx Allergies Allergy/AdvReac Type Severity Reaction Status Date / Time No Known Allergies Allergy Verified 10/09/16 08:41 ED Review of Systems ROS: Stated complaint: BUMP ON VAGINA,BACK PAIN, Other details as noted in HPI Constitutional: malaise, weakness Eyes: denies: eye discharge ENT: denies: epistaxis Respiratory: cough Cardiovascular: denies: chest pain Gastrointestinal: nausea, diarrhea. denies: abdominal pain, vomiting Genitourinary: as per HPI Musculoskeletal: back pain, arthralgia, myalgia Neurological: weakness Psychiatric: anxiety ED Past Medical Hx - Past Medical History Hx Hypertension: No Hx Congestive Heart Failure: No Hx Diabetes: No Hx Deep Vein Thrombosis: No Hx Renal Disease: No Hx Sickle Cell Disease: No Hx Seizures: No Hx Asthma: No Hx COPD: No Hx HIV: No - Social History Smoking Status: Never Smoker Substance Use Type: None - Medications Home Medications: Home Medications Medication Instructions Recorded Confirmed Last Taken Type Vit,Calc76/Iron/Folic 1 tab PO DAILY 04/12/18 05/13/18 05/13/18 09:00 History [Pnv 29-1 Tablet] Acetaminophen [Non-Aspirin Extra 500 mg PO Q6HR PRN #30 tablet 12/17/20 Unknown Rx Strength] Ibuprofen [Motrin] 600 mg PO Q8H PRN #30 tablet 12/17/20 Unknown Rx Metoclopramide [Reglan] 10 mg PO QID PRN #30 tablet 12/17/20 Unknown Rx levoFLOXacin [Levaquin] 750 mg PO QDAY #10 tablet 12/17/20 Unknown Rx ED Physical Exam - General Limitations: No Limitations General appearance: alert, anxious, in distress - Head Head exam: Present: atraumatic, normocephalic - Eye Eye exam: Present: normal appearance, PERRL, EOMI, other (Visual acuity intact to finger counting in color perception and pain close distance). Absent: nystagmus - ENT ENT exam: Present: normal exam, normal orophraynx, mucous membranes moist, normal external ear exam - Neck Neck exam: Present: normal inspection, full ROM. Absent: tenderness, meni ngismus - Respiratory Respiratory exam: Present: normal lung sounds bilaterally. Absent: respiratory distress, wheezes, rales, rhonchi, stridor, decreased breath sounds - Cardiovascular Cardiovascular Exam: Present: regular rate, normal rhythm, normal heart sounds. Absent: bradycardia, tachycardia, irregular rhythm, systolic murmur, diastolic murmur, rubs, gallop - GI/Abdominal GI/Abdominal exam: Present: soft. Absent: distended, tenderness, guarding, rebound, rigid, pulsatile mass - External exam: Present: normal external exam, lesions (There is an indurated external vaginal lesion noted, without pus or streaking at around 7:00, minimal pustule noted, questionable vesicle noted) - Extremities Exam Extremities exam: Present: normal inspection, full ROM, other (2+ pulses noted in the bilateral upper and lower extremities. There is no palpable cord. negative Homans sign. Muscular compartments are soft. The pelvis is stable.). Absent: pedal edema, calf tenderness - Back Exam Back exam: Present: normal inspection, tenderness, CVA tenderness (R), CVA tenderness (L), muscle spasm, paraspinal tenderness. Absent: vertebral tenderness - Neurological Exam Neurological exam: Present: alert, oriented X3, other (No facial droop. Tongue midline. Extraocular movements intact bilaterally. Facial sensation intact to light touch in V1, V2, V3 distribution bilaterally. 5 and a 5 strength in 4 extremities. Sensation intact to light touch in 4 extremities.). Absent: motor sensory deficit - Psychiatric Psychiatric exam: Present: anxious - Skin Skin exam: Present: warm, dry, intact, normal color. Absent: rash ED Course Vital Signs 12/17/20 12/17/20 12/17/20 12:54 12:58 15:35 Temperature 99.8 F H Pulse Rate 68 Respiratory 16 Rate Blood Pressure 92/57 [Left] O2 Sat by Pulse 96 100 Oximetry 12/17/20 17:27 Temperature Pulse Rate 63 Respiratory 16 Rate Blood Pressure 102/51 [Left] O2 Sat by Pulse 99 Oximetry - Reevaluation(s) Reevaluation #1: 12/17/20 16:08 Differential diagnosis, including but not limited to: Fibromyalgia, pneumonia, urinary tract infection, cellulitis, genital herpes, COVID-19 Assessment and plan: 30-year-old female, with low-grade temperature, very slender, borderline hypotension, with multiple symptoms, including headache, nausea, diarrhea, body aches, external vaginal irritation, generalized malaise and fatigue. Patient placed on cardiac monitoring isolation. Started IV fluids and hydromorphone. This much improved her symptomatology. On reassessment she is resting comfortably states that she feels significantly improved. Blood pressu re still somewhat low, additional IV fluids, and ketorolac ordered. Urinalysis pending at this time. Chest x-ray unremarkable. The patient is not hypoxic. Patient counseled to obtain outpatient COVID-19 testing, as well as outpatient COVID-19 vaccination status. Patient inquired as to muscle relaxants, and I informed her that it is this provider's practice to not administer muscle relaxants. We recommend Tylenol and/or ibuprofen. In terms of her external vaginal lesion, there is induration, with possible pustule versus vesicle. Warm compresses, pain medication, empiric antivirals, and oral antibiotics. Outpatient follow-up with primary care and/or CANNERY TENDER ENGINEER. Reassess after fluid resuscitation has completed, and reassess after urinalysis has completed. 12/17/20 17:57 Patient had a prolonged stay here in the emergency room, secondary to prolonged time to acquire urinalysis. Urinalysis reviewed and appreciated. In spite of 14 epithelial cells, given positive nitrites, bacteriuria, CVA tenderness, low- grade fever, we will treat empirically for pyelonephritis. Blood pressure im proved. No active vomiting. Patient feels improved. Ambulates with a steady gait. Ceftriaxone will be administered in the emergency room. Discharged with Levaquin, which should cover skin/soft tissue, and urinary pathogens. Discharged with pain medication, nausea medication, warm compresses. Outpatient follow-up. Patient should follow-up with a BUSINESS MAIL ENTRY CLERK or primary care doctor to rule in/rule out genital herpes. Given lack of convincing/definitive vesicular lesion, I would prefer to withhold antiviral therapy at this time. ED Medical Decision Making - Lab Data Result diagrams: 12/17/20 13:10 12/17/20 13:10 Vital Signs 12/17/20 12/17/20 12/17/20 12:54 12:58 15:35 Temperature 99.8 F H Pulse Rate 68 Respiratory 16 Rate Blood Pressure 92/57 [Left] O2 Sat by Pulse 96 100 Oximetry Lab Results 12/17/20 12/17/20 12/17/20 Range/Units 13:10 13:10 13:10 WBC 5.6 (4.5-11.0) K/mm3 RBC 4.26 (3.65-5.03) M/mm3 Hgb 13.4 (10.1-14.3) gm/dl Hct 40.2 (30.3-42.9) % MCV 94 (79-97) fl MCH 32 (28-32) pg MCHC 33 (30-34) % RDW 12.9 L (13.2-15.2) % Plt Count 256 (140-440) K/mm3 Lymph % (Auto) 29.1 (13.4-35.0) % [place] % (Auto) 14.1 H (0.0-7.3) % Eos % (Auto) 0.3 (0.0-4.3) % Baso % (Auto) 0.5 (0.0-1.8) % Lymph # (Auto) 1.6 (1.2-5.4) K/mm3 [place] # (Auto) 0.8 (0.0-0.8) K/mm3 Eos # (Auto) 0.0 (0.0-0.4) K/mm3 Baso # (Auto) 0.0 (0.0-0.1) K/mm3 Seg Neutrophils % 56.0 (40.0-70.0) % Seg Neutrophils # 3.2 (1.8-7.7) K/mm3 PT (12.2-14.9) Sec. INR (0.87-1.13) Sodium 137 (137-145) mmol/L Potassium 4.3 (3.6-5.0) mmol/L Chloride 100.6 (98-107) mmol/L Carbon Dioxide 23 (22-30) mmol/L Anion Gap 18 mmol/L BUN 10 (7-17) mg/dL Creatinine 0.8 (0.6-1.2) mg/dL Estimated GFR > 60 ml/min BUN/Creatinine Ratio 13 % Glucose 92 (65-100) mg/dL Calcium 8.9 (8.4-10.2) mg/dL Magnesium 2.20 (1.7-2.3) mg/dL Total Bilirubin < 0.20 (0.1-1.2) mg/dL AST 14 (5-40) units/L ALT 18 (7-56) units/L Alkaline Phosphatase 59 (35-129) units/L Total Creatine Kinase 60 (30-135) units/L Total Protein 7.8 (6.3-8.2) g/dL Albumin 3.6 L (3.9-5) g/dL Albumin/Globulin Ratio 0.9 % HCG, Quant < 2 (0-4) mIU/mL 12/17/20 Range/Units 13:10 WBC (4.5-11.0) K/mm3 RBC (3.65-5.03) M/mm3 Hgb (10.1-14.3) gm/dl Hct (30.3-42.9) % MCV (79-97) fl MCH (28-32) pg MCHC (30-34) % RDW (13.2-15.2) % Plt Count (140-440) K/mm3 Lymph % (Auto) (13.4-35.0) % [place] % (Auto) (0.0-7.3) % Eos % (Auto) (0.0-4.3) % Baso % (Auto) (0.0-1.8) % Lymph # (Auto) (1.2-5.4) K/mm3 [place] # (Auto) (0.0-0.8) K/mm3 Eos # (Auto) (0.0-0.4) K/mm3 Baso # (Auto) (0.0-0.1) K/mm3 Seg Neutrophils % (40.0-70.0) % Seg Neutrophils # (1.8-7.7) K/mm3 PT 14.6 (12.2-14.9) Sec. INR 1.03 (0.87-1.13) Sodium (137-145) mmol/L Potassium (3.6-5.0) mmol/L Chloride (98-107) mmol/L Carbon Dioxide (22-30) mmol/L Anion Gap mmol/L BUN (7-17) mg/dL Creatinine (0.6-1.2) mg/dL Estimated GFR ml/min BUN/Creatinine Ratio % Glucose (65-100) mg/dL Calcium (8.4-10.2) mg/dL Magnesium (1.7-2.3) mg/dL Total Bilirubin (0.1-1.2) mg/dL AST (5-40) units/L ALT (7-56) units/L Alkaline Phosphatase (35-129) units/L Total Creatine Kinase (30-135) units/L Total Protein (6.3-8.2) g/dL Albumin (3.9-5) g/dL Albumin/Globulin Ratio % HCG, Quant (0-4) mIU/mL Vital Signs 12/17/20 12/17/20 12/17/20 12:54 12:58 15:35 Temperature 99.8 F H Pulse Rate 68 Respiratory 16 Rate Blood Pressure 92/57 [Left] O2 Sat by Pulse 96 100 Oximetry 12/17/20 17:27 Temperature Pulse Rate 63 Respiratory 16 Rate Blood Pressure 102/51 [Left] O2 Sat by Pulse 99 Oximetry - Radiology Data Radiology results: pending, report reviewed, image reviewed CHEST 2 VIEWS INDICATION: back pain myalgiasm weakness. COMPARISON: 09/01/2018 FINDINGS: SUPPORT DEVICES: None. HEART: Within normal limits. LUNGS/PLEURA: No acute air space or interstitial disease. No pneumothorax. ADDITIONAL FINDINGS: None. IMPRESSION: 1. No acute findings. Signer Name: Zaid Najera MD Signed: 12/17/2020 2:22 PM Workstation Name: [id number] Critical care attestation.: If time is entered above; I have spent that time in minutes in the direct care of this critically ill patient, excluding procedure time. ED Disposition Clinical Impression: COVID-19 vaccination not done, Suspected COVID-19 virus infection, Vaginal lesion, Back pain, Myalgia Disposition: 01 HOME / SELF CARE / HOMELESS Is pt being admited?: No Does the pt Need Aspirin: No Condition: Good Instructions: Pyelonephritis, Adult, COVID-19 Additional Instructions: Please apply warm compresses to the right vaginal lesion. Follow-up with a primary care doctor or washer assembler within the next 3 to 5 days for repeat checkup and evaluation. Urinalysis today suggested urinary tract infection. Please have a primary care doctor contact medical records department to follow- up on culture results. Please take the pain medication, nausea medications and antibiotics as needed and directed. Avoid consumption of alcohol, tobacco, and smoke products. Recommend that patient obtain outpatient COVID-19 test, and to get a COVID-19 vaccination when she is asymptomatic. She should consult with her primary care doctor for this. Please return to the emergency room right away with new pain, worsened pain, migration of pain, projectile vomiting, change in mental status, confusion, inability to tolerate liquid feeds, new, worsened or different symptoms not present on the initial emergency room evaluation. Please have a primary care doctor contact medical records department to follow-up on laboratory studies, radiology studies and culture results. Referrals: [facility] [Provider Group] - 3-5 Days [facility] [Provider Group] - 3-5 Days Forms: Work/School Release Form(ED)
[2020-12-17] MEDS ORDERED: LACTATED RINGERS 1,000 ML IV ONE ×2 (13:04→15:55)
[2020-12-17] MEDS ORDERED: METOCLOPRAMIDE 10 MG/2 ML INJ IV ONE (13:04)
[2020-12-17] MEDS ORDERED: ACETAMINOPHEN 325 MG TAB PO ONE (13:04)
[2020-12-17] MEDS ORDERED: HYDROmorphone 1 MG/1 ML INJ IV ONE (13:04)
[2020-12-17 13:24] LABS: Basophils % (Auto) 0.5 % (0.0-1.8); Eosinophils % (Auto) 0.3 % (0.0-4.3); Hematocrit 40.2 % (30.3-42.9); Hemoglobin 13.4 gm/dl (10.1-14.3); Lymphocytes # (Auto) 1.6 K/mm3 (1.2-5.4); Lymphocytes % (Auto) 29.1 % (13.4-35.0); Mean Corpuscular HGB Conc 33 % (30-34); Mean Corpuscular Volume 94 fl (79-97); Monocytes # (Auto) 0.8 K/mm3 (0.0-0.8); Monocytes % (Auto) 14.1 % (0.0-7.3); Platelet Count 256 K/mm3 (140-440); Red Blood Count 4.26 M/mm3 (3.65-5.03); Red Cell Distribution Width 12.9 % (13.2-15.2)
[2020-12-17 13:38] LABS: INR 1.03 (0.87-1.13)
[2020-12-17 13:48] LABS: Alanine Aminotransferase 18 units/L (7-56); Albumin 3.6 g/dL (3.9-5); BUN/Creatinine Ratio 13; Blood Urea Nitrogen 10 mg/dL (7-17); Calcium 8.9 mg/dL (8.4-10.2); Hemolysis Index 4
--- NOTE | 2020-12-17 15:27 | XRay Report ---
CHEST 2 VIEWS INDICATION: back pain myalgiasm weakness. COMPARISON: 09/01/2018 FINDINGS: SUPPORT DEVICES: None. HEART: Within normal limits. LUNGS/PLEURA: No acute air space or interstitial disease. No pneumothorax. ADDITIONAL FINDINGS: None. IMPRESSION: 1. No acute findings. Signer Name: Zaid Najera MD Signed: 12/17/2020 3:22 PM Workstation Name: [id number]
[2020-12-17] MEDS ORDERED: KETOROLAC 30 MG/1 ML INJ IV ONE (15:55)
[2020-12-17 16:47] LABS: Bacteria,Urine 1+ /HPF (Negative); Bilirubin,Urine NEG (Negative); Blood,Urine NEG (Negative); Color,Urine Yellow (Yellow); Mucus,Urine 2+ /HPF; Protein,Urine <15 mg/dL mg/dL (Negative)
[2020-12-17 17:27] VITALS: BP 102/51
[2020-12-17] MEDS ORDERED: cefTRIAXone/NS 1 GM/50 ML 1 GM/50 ML BAG IV ONE (17:56)
== END 2020-12-17 18:34 | disposition home or self-care (01) ==
LOC: ED 10:29
DX: N89.9 Noninflammatory disorder of vagina, unspecified (principal); M54.50 Low back pain, unspecified; M79.10 Myalgia, unspecified site; Z20.822 Contact with and (suspected) exposure to COVID-19
CPT/HCPCS: 36415; 71046; 80053; 81001; 82550; 83735; 84702; 85025; 85610; 87086; 96361; 96374; 96375; 99284; J1170; J1885; J2765; J7120